=== PATIENT | male | born 1970 | race Caucasian/White ===

== ENCOUNTER 2020-08-24 14:05 | Outpatient (REF) | payer OTHER, SELFPAY | END 2020-08-24 14:06 | disposition home or self-care (01) | LOC: HO.LAB 14:05 | PROVIDERS: Visit Provider Internal Medicine | DX: Z20.822 Contact with and (suspected) exposure to COVID-19 (principal) | CPT/HCPCS: C9803; U0003; U0005 ==

== ENCOUNTER 2021-05-24 14:00 | Outpatient (REF) | payer OTHER, SELFPAY ==
[2021-05-24 14:54] LABS: Alanine Aminotransferase 17 U/L (0-40); Albumin Level 4.4 g/dL (3.5-5.0); Alkaline Phosphatase 93 U/L (39-117); Anion Gap 10 (12-20); Aspartate Amino Transferase 15 U/L (5-37); Bilirubin Total 0.9 mg/dL (0.0-1.0); Blood Urea Nitrogen 15 mg/dL (9-16); Calcium 10.1 mg/dL (8.4-10.2); Carbon Dioxide 31 mmol/L (22-29); Chloride 100 mmol/L (96-108); Cholesterol 306 mg/dL; Estimated Glomerular Filt Rate > 60; Glucose Fasting 89 mg/dL (60-99); HDL Cholesterol 49 mg/dL; LDL Cholesterol Calculated 228 mg/dl; Potassium 3.4 mmol/L (3.3-5.1); Sodium 138 mmol/L (135-145); Triglycerides 146 mg/dL
== END 2021-05-24 14:01 | disposition home or self-care (01) ==
LOC: HO.LAB 14:00
PROVIDERS: PCP Internal Medicine; Visit Provider Internal Medicine
DX: I10 Essential (primary) hypertension (principal); E78.5 Hyperlipidemia, unspecified
CPT/HCPCS: 36415; 80053; 80061

== ENCOUNTER 2022-11-17 15:55 | Outpatient (AMB) | payer OTHER, SELFPAY ==
--- NOTE | 2022-11-17 16:16 | MHC.PC.OV ---
Vital Signs 11/17/22 16:17 Height 5 ft 8.5 in Weight 204 lb 6 oz BMI 30.6 BP 130/80 Blood Pressure Location Lt brachial Position Sitting Pulse 72 Pulse Source Pulse Oximeter Pulse Oximetry (%) 98 Oxygen Delivery Method Room Air Intake Visit Reasons: Right upper back pain Intake Note: Pt is here for right upper back pain and left knee pain since last year. 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 Accompanied by: Self / Same As Patient Allergies atorvastatin Allergy (Intermediate, Verified 11/17/22 16:39) cough Medication List - Last Reconciled 11/17/22 by Pratima Sanchez MD amlodipine 10 mg PO DAILY 90 days hydrochlorothiazide 25 mg PO DAILY 90 days losartan 100 mg PO DAILY 90 days rosuvastatin 40 mg PO BEDTIME 90 days Tobacco use date assessed: 11/17/22 Dental Screening Dental Screen Date: 11/17/22 Did you have a dental visit in the last 12 months?: No Did you have a dental problem in the last 6 months where you did not have access to dental care?: No Was dental information given to patient?: Patient has dentist HPI HPI Comments History of Present Illness Details This is a 52-year-old male with hypertension and dyslipidemia that complains of left knee pain that started about a month ago. He denies any recent injury. Has full active range of motion. Will order x-ray and start physical therapy. Blood pressure stable with medications. Lipid panel will be order and he is on statins for his cholesterol. He also complains of occasional hand tremors and wants to see Neurology. [facility] Medical History (Updated 11/17/22 @ 16:43 by Pratima Sanchez MD) Dyslipidemia Essential hypertension Overweight (BMI 25.0-29.9) Tremor Surgical History History of surgery Family History Father Prostate cancer Mother Hypertension Social History Housing: Apartment Alcohol intake: current Alcohol intake frequency: holidays/special occasions only Alcohol type: beer Patient Tobacco Use Status: Never used Tobacco e-Cigarette/Vaping Use: Never Used Second Hand Smoke Exposure: No service: No Current occupational status: unemployed Cognitive needs: No Hearing needs: No Vision needs: No Questionnaire PHQ-9 Over the last 2 weeks, how often have you been bothered by any of the following problems? 1. Little interest or pleasure in doing things: not at all 2. Feeling down, depressed, or hopeless: not at all 3. Trouble falling or staying asleep, or sleeping too much: not at all 4. Feeling tired or having little energy: not at all 5. Poor appetite or overeating: not at all 6. Feeling bad about yourself - or that you are a failure or have let yourself or your family down: not at all 7. Trouble concentrating on things, such as reading the newspaper or watching television: not at all 8. Moving or speaking so slowly that other people could have noticed. Or the opposite - being so fidgety or restless that you have been moving around a lot more than usual: not at all 9. Thoughts that you would be better off or of hurting yourself in some way: not at all Total score: 0 Depression Screening Interpretation: Negative 47638 - PHQ-9 Billing: Yes Source: Developed by Drs. Star Tipton, Bisi Blanco, Efra Alberts and colleagues, with an educational linnea from [employer]. Thrive Questionnaire Date Thrive assessed: 11/17/22 I am a: Patient What is your living situation today?: I have a steady place to live Within the past 12 months, did the food you bought not last and you didn't have the money to get more?: Never true Within the past 12 months, did you worry whether your food would run out before you got money to buy more?: Never true Do you have trouble paying for medicines?: No Do you have trouble getting transportation to medical appointments?: No Do you have trouble paying your heating and electricity bill?: No Do you have trouble taking care of your child, family member or friend?: No Do you have trouble with day-to-day activities such as bathing, preparing meals, shopping, managing finances, etc.?: No Are you currently unemployed and looking for a job?: No Are you interested in more education?: No Please select the resources that you would like help with: None Currently or been in a relationship where the following occur: no concerns reported AUDIT C Alcohol Use Questionnaire (AUDIT-C) 1. How often do you have a drink containing alcohol?: Never 3. How often do you have six or more drinks on one occasion?: Never Total Score: 0 DYLAN-7 AMB Questionnaire DYLAN-7 Date DYLAN - 7 assessed: 11/17/22 Feeling nervous, anxious, or on edge: 0 = Not at all Not being able to stop or control worryin = Not at all Worrying too much about different things: 0 = Not at all Trouble relaxin = Not at all Being so restless that it is hard to sit still: 0 = Not at all Becoming easily annoyed or irritable: 0 = Not at all Feeling afraid as if something awful might happen: 0 = Not at all Total DYLAN-7 score (0-4 normal; 5-9 mild; 10-14 moderate; 15-21 severe): 0 Source: Developed by Drs. Star Tipton, Bisi Blanco, Efra Alberts and colleagues, with an educational linnea from [employer]. DYLAN-7 Assessment Billing DYLAN-7 Assessment Tool: DYLAN-7 Assessment 89482 Review of Systems Const All systems reviewed & are unremarkable except as noted in HPI and below Eyes Reports no additional complaints, Denies change in vision and Denies other visual disturbances Card Denies chest pain at rest, Denies chest pain with activity, Denies edema, Denies irregular heart rhythm, Denies claudication, Denies dyspnea, Denies dyspnea on exertion, Denies orthopnea, Denies paroxysmal nocturnal dyspnea and Denies slow heart rate Resp Denies cough, Denies dyspnea and Denies dyspnea on exertion GI Denies abdominal pain, Denies change in bowel habits, Denies excessive flatus, Denies nausea and Denies vomiting Denies urinary hesitancy, Denies urinary incontinence and Denies urinary urgency Musc Denies abnormal gait, Denies atrophy, Denies deformity, Reports arthralgias and Denies limited range of motion Skin/Breast Denies bleeding lesions, Denies changing lesions and Denies rash Neuro Denies abnormal gait, Denies lack of coordination and Reports tremor(s) Physical exam (Primary Care) Vital Signs: Last Vital Signs Pulse 72 11/17/22 16:17 BP 130/80 11/17/22 16:17 Pulse Ox 98 11/17/22 16:17 Oxygen Delivery Method Room Air 11/17/22 16:17 BMI result Body Mass Index 30.6 Tobacco/Smoking Status: Tobacco use Status Tobacco use date assessed 11/17/22 11/17/22 16:23 Patient Tobacco Use Status Never used Tobacco 11/17/22 16:16 e-Cigarette/Vaping Use Never Used 11/17/22 16:16 PHQ-9: PHQ-9 Score PHQ-9: Total score 0 11/17/22 16:46 Depression Screening Interpretation: Negative Thrive Assessment: Date of Thrive Assessment Date Thrive assessed 11/17/22 11/17/22 16:23 Currently or been in a relationship where the following occur: no concerns reported Eyes General: appearance normal, both eyes and all related structures Eyelids: Yes eyelids normal Conjunctivae: conjunctivae normal Neck Neck: Yes normal visual inspection and Yes supple Resp Effort & Inspection: normal respiratory effort Auscultation: clear to auscultation bilaterally Cardio Jugular venous distension: no JVD Rate: regular rate Rhythm: regular rhythm Heart sounds: S1 normal heart sound present and S2 normal heart sound present Extrem General: Yes full ROM Assessment and Plan Assessment & Plan (1) Essential hypertension: Code(s): I10 - Essential (primary) hypertension Plan: Continue amlodipine, hydrochlorothiazide and losartan. Blood pressure goal is equal or less than 130/80. (2) Dyslipidemia: Code(s): E78.5 - Hyperlipidemia, unspecified Plan: Continue statins. (3) Left knee pain: Code(s): M25.562 - Pain in left knee Plan: X-ray ordered. Start physical therapy. (4) Occasional tremors: Code(s): R25.1 - Tremor, unspecified Plan: Referred to neurology. Orders: Orders PT Evaluation and Treatment 11/17/22 M25.562 - Pain in left knee XR knee LT 2V 11/17/22 M25.562 - Pain in left knee Referrals Neurology Referral R25.1 - Tremor, unspecified Coding Level of Care Code Est Pt Level 4 (03177) Diagnoses Essential hypertension I10 Dyslipidemia E78.5 Left knee pain M25.562 Occasional tremors R25.1 Additional Codes DYLAN-7 Assessment Billing - DYLAN-7 Assessment Tool: DYLAN-7 Assessment [id number] ([id number]) Time Spent (min) 21
[2022-11-17 16:17] VITALS: BP 130/80; PULSE 72; O2SAT 98; BMI 30.6
== END 2022-11-17 16:45 | disposition home or self-care (01) ==
PROVIDERS: PCP Internal Medicine; Visit Provider Internal Medicine
DX: I10 Essential (primary) hypertension (principal); E78.5 Hyperlipidemia, unspecified; M25.562 Pain in left knee; R25.1 Tremor, unspecified
CPT/HCPCS: 99214

== ENCOUNTER 2022-11-21 15:15 | Outpatient (REF) | payer OTHER, SELFPAY ==
--- NOTE | ~2022-11-21 | XR_ITS ---
EXAMINATION: XR KNEE, LEFT CLINICAL INFORMATION: Pain COMPARISON: None available. TECHNIQUE: Two views of the left knee. FINDINGS: Bone alignment is normal. No fracture or dislocation. Mild medial femoral tibial joint space narrowing. Small osteophytes at the patellofemoral joint. Osteophytes at the quadriceps tendon insertion and patellar tendon origin and insertion. Moderate joint effusion. XR/XR knee LT 2V IMPRESSION: Degenerative changes and joint effusion.
== END 2022-11-21 15:16 | disposition home or self-care (01) ==
LOC: HO.XRAY 15:15
PROVIDERS: PCP Internal Medicine; Visit Provider Internal Medicine
DX: M25.562 Pain in left knee (principal)
CPT/HCPCS: 73560